=== PATIENT | male | born 1995 ===

== ENCOUNTER 2023-01-02 15:20 | Emergency (ER) | payer OTHER ==
[~2023-01-02] VITALS: Ht 175.3 cm; Wt 77.3 kg
[2023-01-02] MEDS ORDERED: PERMETHRIN 5% 60 GM CREAM TP ONE (16:00)
[2023-01-02] MEDS ORDERED: DiphenhydrAMINE HCL 25 MG CAPSULE PO ONE (16:00)
[2023-01-02 16:38] VITALS: BP 107/60
== END 2023-01-02 17:34 | disposition home or self-care (01) ==
LOC: EMS 15:23
DX: R21 Rash and other nonspecific skin eruption (principal); B86 Scabies; J45.909 Unspecified asthma, uncomplicated; F12.90 Cannabis use, unspecified, uncomplicated
CPT/HCPCS: 99283